=== PATIENT | male | born 1960 | race Caucasian/White ===

== ENCOUNTER 2021-08-29 12:33 | Emergency (ER) | payer OTHER ==
[2021-08-29 13:08] LABS: Absolute Lymphocytes (CBC) 1.4 K/uL (0.7-4.9); Hematocrit 44.4 % (39.6-49.0); Lymphocytes % 15.2 % (15.3-44.8); MPV 9.4 fL (7.6-11.3); RBC Red Blood Cell Count 5.18 M/uL (4.33-5.43)
[2021-08-29] MEDS ORDERED: NA CHLORIDE 0.9% 500 ML ONE ×2 (13:09→14:13)
--- NOTE | 2021-08-29 13:22 | RAD REPORT ---
EXAM DESCRIPTION: RAD - Chest Single View - 08/29/2021 1:08 pm CLINICAL HISTORY: Chest pain, shortness of breath COMPARISON: None available TECHNIQUE: AP portable chest image was obtained 08/29/2021 1:08 pm . FINDINGS: Lungs are clear. Heart and vasculature are normal. No measurable pleural effusion and no p neumothorax. No acute bony abnormality seen. No acute aortic findings suspected. IMPRESSION: No acute cardiopulmonary process.
[2021-08-29 13:26] LABS: Potassium 3.5 mmol/L (3.5-5.1); Troponin High Sensitivity 7.2 pg/mL (<58.9)
--- NOTE | 2021-08-29 15:21 | EDPHYS ---
Physician Documentation [facility] Name: Matt Cronin III Age: 61 yrs Sex: Male : 1960 Arrival Date: 08/29/2021 Time: 12:37 Bed 8 Private MD: ED Physician Juan Jose Larson HPI: 08/29 12:42 This 61 yrs old Male presents to ER via Unassigned with complaints of Lightheaded, kdr Shortness Of Breath. 12:42 Patient has been intermittently lightheaded, dizzy and short of breath over the last kdr week. He had been off of his metformin for few days. Otherwise denies any specific focal complaints. He states he just does not feel right.. Onset: The symptoms/episode began/occurred gradually, 1 week(s) ago. Severity of symptoms: At their worst the symptoms were mild in the emergency department the symptoms are unchanged. The patient has not experienced similar symptoms in the past. The patient has not recently seen a physician. Historical: - Allergies: 12:44 No Known Allergies; jl7 - Home Meds: 12:44 amlodipine oral BID [Active]; Hydrochlorothiazide Oral once daily [Active]; metformin jl7 500 mg Oral tab 1 tab 2 times per day [Active]; tamsulosin oral [Active]; pravastatin oral [Active]; - PMHx: 12:44 Hypertensive disorder; Diabetes mellitus; jl7 - PSHx: 12:44 left shoulder; jaw; jl7 - Immunization history:: Client reports receiving the 2nd dose of the Covid vaccine. - Social history:: Smoking status: Patient denies any tobacco usage or history of. ROS: 12:42 Constitutional: Negative for fever, chills, and weight loss, Eyes: Negative for injury, kdr pain, redness, and discharge, ENT: Negative for injury, pain, and discharge, Neck: Negative for injury, pain, and swelling, Abdomen/GI: Negative for abdominal pain, nausea, vomiting, diarrhea, and constipation, Back: Negative for injury and pain, : Negative for injury, bleeding, discharge, and swelling, MS/Extremity: Negative for injury and deformity, Skin: Negative for injury, rash, and discoloration, Neuro: Negative for headache, weakness, numbness, tingling, and seizure activity. Psych: Negative for depression, anxiety, suicide ideation, homicidal ideation, and hallucinations, Allergy/Immunology: Negative for hives, rash, and allergies, Hematologic/Lymphatic: Negative for swollen nodes, abnormal bleeding, and unusual bruising. 12:42 Cardiovascular: Positive for palpitations, Negative for chest pain, edema, orthopnea, paroxysmal nocturnal dyspnea, acute changes. 12:42 Respiratory: Positive for shortness of breath, Negative for dyspnea on exertion, hemoptysis, orthopnea, sputum production, wheezing. 12:42 Endocrine: Positive for polydipsia, polyuria, Negative for cold intolerance, heat intolerance, weight gain, weight loss. Exam: 12:42 Constitutional: This is a well developed, well nourished patient who is awake, alert, kdr and in no acute distress. Head/Face: Normocephalic, atraumatic. Eyes: Pupils equal round and reactive to light, extra-ocular motions intact. Lids and lashes normal. Conjunctiva and sclera are non-icteric and not injected. Cornea within normal limits. Periorbital areas with no swelling, redness, or edema. Neck: Trachea midline, no thyromegaly or masses palpated, and no cervical lymphadenopathy. Supple, full range of motion without nuchal rigidity, or vertebral point tenderness. No Meningismus. Chest/axilla: Normal chest wall appearance and motion. Nontender with no deformity. No lesions are appreciated. Respiratory: Lungs have equal breath sounds bilaterally, clear to auscultation and percussion. No rales, rhonchi or wheezes noted. No increased work of breathing, no retractions or nasal flaring. Abdomen/GI: Soft, non-tender, with normal bowel sounds. No distension or tympany. No guarding or rebound. No evidence of tenderness throughout. Back: No spinal tenderness. No costovertebral tenderness. Full range of motion. Skin: Warm, dry with normal turgor. Normal color with no rashes, no lesions, and no evidence of cellulitis. 12:42 Cardiovascular: Rate: tachycardic, Rhythm: regular, Pulses: no pulse deficits are appreciated, Heart sounds: normal, Edema: is not appreciated, JVD: is not appreciated. 12:42 ECG was reviewed by the Attending Physician. Vital Signs: 12:42 BP 137 / 94; Pulse 105; Resp 17; Temp 97.8; Pulse Ox 93% on R/A; Weight 97.52 kg; jl7 Height 5 ft. 7 in. (170.18 cm); Pain 0/10; 14:44 BP 123 / 81; Pulse 79; Resp 15; Pulse Ox 98% on R/A; jl7 12:42 Body Mass Index 33.67 (97.52 kg, 170.18 cm) jl7 MDM: 14:41 Data reviewed: vital signs, nurses notes, lab test result(s), EKG, radiologic studies. kdr Counseling: I had a detailed discussion with the patient and/or guardian regarding: the historical points, exam findings, and any diagnostic results supporting the discharge/admit diagnosis, lab results, radiology results. ED course: Although it was noted on the chest x-ray request that the patient had chest pain, in fact he had not had any chest pain but rather was simply short of breath and lightheaded. Patient had not had chest pain prior to the arrival or while in the ED.. 15:20 Patient medically screened. kdr 08/29 12:41 Order name: Basic Metabolic Panel; Complete Time: 13:46 kdr 08/29 12:41 Order name: CBC with Diff; Complete Time: 13:46 kdr 08/29 12:41 Order name: Troponin HS; Complete Time: 13:46 kdr 08/29 13:10 Order name: D-Dimer; Complete Time: 13:46 kdr 08/29 13:14 Order name: Glucose, Ancillary Testing; Complete Time: 13:46 EDMS 08/29 12:41 Order name: XRAY Chest (1 view); Complete Time: 13:46 kdr 08/29 12:41 Order name: EKG; Complete Time: 12:42 kdr 08/29 12:41 Order name: Cardiac monitoring; Complete Time: 12:47 kdr 08/29 12:41 Order name: EKG - Nurse/Tech; Complete Time: 12:47 kdr 08/29 12:41 Order name: IV Saline Lock; Complete Time: 13:16 kdr 08/29 12:41 Order name: Labs collected and sent; Complete Time: 13:16 kdr 08/29 12:41 Order name: O2 Per Protocol; Complete Time: 13:16 kdr 08/29 12:41 Order name: O2 Sat Monitoring; Complete Time: 13:16 kdr EC:42 Rate is 105 beats/min. Rhythm is regular, Sinus Rhythm with No ectopy. QRS [place] is kdr Normal. MS interval is normal. QRS interval is normal. Clinical impression: Sinus tachycardia. Administered Medications: 13:00 Drug: NS 0.9% 500 ml Route: IV; Rate: bolus; Site: right antecubital; jl7 13:30 Follow up: Response: No adverse reaction; IV Status: Completed infusion; IV Intake: jl7 500ml 14:10 Drug: NS 0.9% 500 ml Route: IV; Rate: bolus; Site: right antecubital; jl7 14:43 Follow up: Response: No adverse reaction; IV Status: Completed infusion; IV Intake: jl7 500ml Disposition Summary: 08/29/21 15:20 Discharge Ordered Location: Home kdr Problem: new kdr Symptoms: have improved kdr Condition: Stable kdr Diagnosis - Hyperglycemia, unspecified kdr - Dehydration kdr - Weakness kdr Followup: kdr - With: Private Physician - When: 2 - 3 days - Reason: If symptoms return, Further diagnostic work-up, Recheck today's complaints, Continuance of care, Re-evaluation by your physician Discharge Instructions: - Discharge Summary Sheet kdr - Dehydration, Adult kdr - Weakness, [id number] kdr - Hyperglycemia, [id number] kdr Forms: - Medication Reconciliation Form kdr - Thank You Letter kdr Signatures: Dispatcher [employer] EDJuan Jose Loredo MD MD kdr [place] Washington RN RN jl7
--- NOTE | 2021-08-29 15:21 | ER ---
Nurse's Notes [facility] Name: Matt Cronin III Age: 61 yrs Sex: Male : 1960 Arrival Date: 08/29/2021 Time: 12:37 Bed 8 Private MD: Diagnosis: Hyperglycemia, unspecified;Dehydration;Weakness Presentation: 08/29 12:42 Chief complaint: Patient states: Standing at work and started feeling lightheaded and jl7 short of breath, HR was 120s and O2 sats 96%, denies chest pain. Coronavirus screen: At this time, the client does not indicate any symptoms associated with coronavirus-19. Ebola Screen: No symptoms or risks identified at this time. Initial Sepsis Screen: Does the patient meet any 2 criteria? No. Patient's initial sepsis screen is negative. Does the patient have a suspected source of infection? No. Patient's initial sepsis screen is negative. Risk Assessment: Do you want to hurt yourself or someone else? Patient reports no desire to harm self or others. Onset of symptoms was August 29, 2021. Care prior to arrival: None. 12:42 Method Of Arrival: Ambulatory jl7 12:42 Acuity: ROSS 3 jl7 Triage Assessment: 12:44 General: Appears in no apparent distress. uncomfortable, Behavior is calm, cooperative, jl7 appropriate for age. Pain: Denies pain. Neuro: Level of Consciousness is awake, alert, obeys commands, Oriented to person, place, time, situation. Cardiovascular: Heart tones S1 S2 present Patient's skin is warm and dry. Respiratory: Reports shortness of breath at rest Airway is patent Respiratory effort is even, unlabored, Respiratory pattern is regular, symmetrical, Breath sounds are clear bilaterally. Onset: The symptoms/episode began/occurred this morning, the patient has mild shortness of breath. Derm: Skin is pink, warm \T\ dry. Historical: - Allergies: 12:44 No Known Allergies; jl7 - Home Meds: 12:44 amlodipine oral BID [Active]; Hydrochlorothiazide Oral once daily [Active]; metformin jl7 500 mg Oral tab 1 tab 2 times per day [Active]; tamsulosin oral [Active]; pravastatin oral [Active]; - PMHx: 12:44 Hypertensive disorder; Diabetes mellitus; jl7 - PSHx: 12:44 left shoulder; jaw; jl7 - Immunization history:: Client reports receiving the 2nd dose of the Covid vaccine. - Social history:: Smoking status: Patient denies any tobacco usage or history of. Screenin:09 Abuse screen: Denies threats or abuse. Denies injuries from another. Nutritional jl7 screening: No deficits noted. Tuberculosis screening: No symptoms or risk factors identified. Fall Risk IV access (20 points). Total Zhou Fall Scale indicates No Risk (0-24 pts). Assessment: 12:45 General: See triage assessment. jl7 13:45 Reassessment: Patient appears in no apparent distress at this time. Patient and/or jl7 family updated on plan of care and expected duration. Pain level reassessed. Patient is alert, oriented x 3, equal unlabored respirations, skin warm/dry/pink. Patient denies pain at this time. 14:45 Reassessment: Patient appears in no apparent distress at this time. Patient and/or jl7 family updated on plan of care and expected duration. Pain level reassessed. Patient is alert, oriented x 3, equal unlabored respirations, skin warm/dry/pink. Patient denies pain at this time. 15:15 Reassessment: Patient appears in no apparent distress at this time. Patient is alert, jl7 oriented x 3, equal unlabored respirations, skin warm/dry/pink. Patient states feeling better. Patient states symptoms have improved. Vital Signs: 12:42 BP 137 / 94; Pulse 105; Resp 17; Temp 97.8; Pulse Ox 93% on R/A; Weight 97.52 kg; jl7 Height 5 ft. 7 in. (170.18 cm); Pain 0/10; 14:44 BP 123 / 81; Pulse 79; Resp 15; Pulse Ox 98% on R/A; jl7 12:42 Body Mass Index 33.67 (97.52 kg, 170.18 cm) jl7 ED Course: 12:37 Patient arrived in ED. am2 12:39 Juan Jose Larson MD is Attending Physician. kdr 12:40 [place] Washington, DESI is Primary Nurse. jl7 12:44 Triage completed. jl7 12:44 Arm band placed on right wrist. jl7 12:47 EKG done, by ED staff, reviewed by Juan Jose Larson MD. jl7 12:55 Initial lab(s) drawn, by me, sent to lab. Inserted saline lock: 20 gauge in right jl7 antecubital area, using aseptic technique. Blood collected. 13:09 XRAY Chest (1 view) In Process Unspecified. EDMS 13:09 Patient has correct armband on for positive identification. Placed in gown. Bed in low jl7 position. Call light in reach. Side rails up X 1. quality assurance monitor final on. Pulse ox on. NIBP on. Warm blanket given. 15:30 No provider procedures requiring assistance completed. IV discontinued, intact, jl7 bleeding controlled, No redness/swelling at site. Pressure dressing applied. Administered Medications: 13:00 Drug: NS 0.9% 500 ml Route: IV; Rate: bolus; Site: right antecubital; jl7 13:30 Follow up: Response: No adverse reaction; IV Status: Completed infusion; IV Intake: jl7 500ml 14:10 Drug: NS 0.9% 500 ml Route: IV; Rate: bolus; Site: right antecubital; jl7 14:43 Follow up: Response: No adverse reaction; IV Status: Completed infusion; IV Intake: jl7 500ml Intake: 13:30 IV: 500ml; Total: 500ml. jl7 14:43 IV: 500ml; Total: 1000ml. jl7 Outcome: 15:20 Discharge ordered by . kdr 15:30 Discharged to home ambulatory. jl7 15:30 Condition: stable 15:30 Discharge instructions given to patient, Instructed on discharge instructions, follow up and referral plans. Demonstrated understanding of instructions, follow-up care. 15:30 Patient left the ED. jl7 Signatures: Dispatcher [employer] EDMS Juan Jose Larson MD MD kdr [place] Washington RN RN jl7 Gladys Brewer
[2021-08-29 15:38] VITALS: TEMP 97.8
[2021-08-29 15:39] VITALS: BP 123/81; O2SAT 98
== END 2021-08-29 15:30 | disposition home or self-care (01) ==
LOC: ER 12:33
DX: E86.0 Dehydration (principal); E11.65 Type 2 diabetes mellitus with hyperglycemia; R53.1 Weakness; I10 Essential (primary) hypertension
CPT/HCPCS: 93005; 85025; 80048; 36415; 82947; 85379; 84484; 71045; 96360; 99284; J7040 ×2